=== PATIENT | female | born 1970 | race African-American/Black ===

== ENCOUNTER 2019-10-17 08:21 | Emergency (ER) | payer MEDICAID ==
[~2019-10-17] VITALS: Ht 170.2 cm; Wt 96.4 kg
[2019-10-17] MEDS ORDERED: NAPR-1193 PO (08:25)
[2019-10-17 09:10] LABS: BASOPHILS % (AUTO) 0.2 % (0.0-2.0); EOSINOPHILS % (AUTO) 1.3 % (1.0-6.0); LYMPHOCYTES # (AUTO) 1.6 K/uL (1.0-4.8); LYMPHOCYTES % (AUTO) 24.3 % (22.0-44.0); MEAN CORPUSCULAR HEMOGLOBIN 18.8 pg (26.0-34.0); MEAN CORPUSCULAR VOLUME 61 fL (80-100); MONOCYTES # (AUTO) 0.5 K/uL (0.1-1.0); MONOCYTES % (AUTO) 7.2 % (2.0-9.0); NEUTROPHILS # (AUTO) 4.5 K/uL (1.8-7.7); PLATELET COUNT (AUTO) 530 K/uL (150-450); RED BLOOD CELL COUNT(AUTO) 3.43 MIL/uL (4.00-5.20); RED CELL DISTRIBUTION WIDTH 19.7 % (11.5-14.5)
[2019-10-17 09:15] LABS: HEMATOCRIT 20.8 % (36-46); HEMOGLOBIN 6.4 g/dL (12.0-16.0)
[2019-10-17 09:17] LABS: ANION GAP 6 mmol/L (8-16); CALCIUM, TOTAL 9.1 mg/dL (8.8-10.5); CARBON DIOXIDE 29 mmol/L (22-29); CHLORIDE 100 mmol/L (98-107); CREATININE 0.87 mg/dL (0.60-1.30); GLOMERULAR FILTR. RATE CALC > 60 mL/min (>60); GLUCOSE,RANDOM 96 mg/dL (70-110); POTASSIUM 3.8 mmol/L (3.5-5.1); SODIUM SERUM 135 mmol/L (136-145); UREA NITROGEN, BLOOD 12 mg/dL (7-18)
[2019-10-17 09:28] LABS: HCG,QUANTITATIVE < 1 mIU/mL (0-6)
[2019-10-17 10:25] VITALS: BP 139/75
[2019-10-17 10:40] VITALS: BP 139/90
[2019-10-17 10:55] VITALS: BP 136/85
[2019-10-17 11:25] VITALS: BP 137/74
[2019-10-17 11:55] VITALS: BP 142/81
[2019-10-17 12:25] VITALS: BP 138/73
== END 2019-10-17 13:04 | disposition home or self-care (01) ==
LOC: EMS 08:28
DX: D64.9 Anemia, unspecified (principal); D25.9 Leiomyoma of uterus, unspecified
CPT/HCPCS: 36415; 36430; 76856; 80048; 84702; 85025; 86850; 86900; 86901; 86923; 99285; P9016